=== PATIENT | female | born 1965 | race Caucasian/White ===

== ENCOUNTER → 2017-04-23 | Outpatient (CLI) | payer MEDICAID | LOC: FIMAGING 18:00 | PROVIDERS: ATTEND Family Medicine Sports Medicine | DX: M25.551 Pain in right hip (principal); M25.552 Pain in left hip ==

== ENCOUNTER → 2017-12-24 | Outpatient (CLI) | payer MEDICAID | LOC: BMCIMAGING 12:56 | PROVIDERS: ATTEND Family Medicine | DX: Z12.31 Encounter for screening mammogram for malignant neoplasm of breast (principal); Z13.820 Encounter for screening for osteoporosis; M85.852 Other specified disorders of bone density and structure, left thigh ==